=== PATIENT | male | born 1995 | race Caucasian/White ===

== ENCOUNTER 2019-03-01 21:06 | Emergency (ER) | payer MEDICAID ==
[~2019-03-01] VITALS: Ht 177.8 cm; Wt 84.4 kg
[2019-03-01 21:19] VITALS: Ht 177.8 cm; Wt 84.4 kg
[2019-03-01] MEDS ORDERED: HYDROCODONE/APAP (5/325) TAB PO ONE (23:00)
[2019-03-01] MEDS ORDERED: HYDR-4011 PO (23:14)
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
[2019-03-01 23:38] VITALS: BP 138/85; PULSE 72; RESP 16
== END 2019-03-01 23:39 | disposition home or self-care (01) ==
LOC: FTE 21:06
DX: S06.0X0A Concussion without loss of consciousness, initial encounter (principal); S00.12XA Contusion of left eyelid and periocular area, initial encounter; H11.32 Conjunctival hemorrhage, left eye; W50.0XXA Accidental hit or strike by another person, initial encounter; Y92.89 Other specified places as the place of occurrence of the external cause; Z87.891 Personal history of nicotine dependence
CPT/HCPCS: Z7502; Z7610; 99283